=== PATIENT | male | born 2000 | race Caucasian/White ===

== ENCOUNTER 2024-07-24 19:08 | Emergency (ER) | payer OTHER ==
[2024-07-24 19:35] VITALS: BP 143/66; PULSE 89; RESP 18; TEMP 98.8; BMI 23.8
[2024-07-24] MEDS ORDERED: METOCLOPRAMIDE HCL INJECTION 10 MG/2 ML VIAL ONE (20:13)
[2024-07-24] MEDS: METOCLOPRAMIDE HCL INJECTION 10 MG/2 ML VIAL IM ONE (20:22)
[2024-07-24 21:03] LABS: HEMATOCRIT 45.8 % (35.4-49); HEMOGLOBIN 15.2 G/dL (11.7-16.9); MCH 29.5 pg (25.7-33.7); MCHC 33.3 g/dl (32.0-35.9); MEAN CELL VOLUME 88.8 fl (80-96); MEAN PLT VOLUME 8.6 fl (7.5-11.1); PLATELET COUNT 228.1 10^3/uL (134-434); RBC 5.16 10^6/uL (4.00-5.60); RDW 13.9 % (11.9-15.9)
[2024-07-24 21:11] LABS: ALBUMIN 4.9 g/dl (3.4-5.0); ALK PHOS 57 U/L (45-117); ANION GAP 7 mmol/L (4-13); BILIRUBIN,TOTAL 1.7 mg/dl (0.2-1); CALCIUM 9.7 mg/dl (8.5-10.1); CHLORIDE 105 mmol/L (98-107); CO2 26 mmol/L (21-32); GLUCOSE,RANDOM 122 mg/dl (74-106); POTASSIUM 3.6 mmol/L (3.5-5.1); SGOT/AST 13 U/L (15-37); SGPT/ALT 17 U/L (7-52); SODIUM 138 mmol/L (136-145); TOT PROT 7.4 g/dl (6.4-8.2)
[2024-07-24 21:23] LABS: PLATELET ESTIMATE ADEQUATE
== END 2024-07-24 23:53 | disposition home or self-care (01) ==
LOC: FER 19:08
PROC: 3E023GC Introduction of Other Therapeutic Substance into Muscle, Percutaneous Approach (ICD-10-PCS; principal; 2024-07-24)
DX: R51.9 Headache, unspecified (principal)
CPT/HCPCS: 36415; 70450-TC; 70496-TC; 70498-TC; 80053; 85027; 99284-25